=== PATIENT | male | born 1990 | race African-American/Black ===

== ENCOUNTER 2016-07-07 06:40 | Emergency (ER) | payer OTHER ==
--- NOTE | 2016-07-07 07:48 | ED NECK/BACK PAIN COMPLAINT ---
History of Present Illness General Chief Complaint: Neck/Upper Back Pain/Injury Stated Complaint: BACK PAIN Source: patient, old records Exam Limitations: no limitations Allergies Coded Allergies: No Known Allergies (07/07/16) Reconcile Medications Cyclobenzaprine HCl 5 MG TABLET 1 TAB PO TIDPRN pain Ibuprofen 800 MG TABLET 1 TAB PO TID PRN pain Oxycodone HCl/Acetaminophen (Percocet 5-325 MG Tablet) 5 MG-325 MG TABLET 1 TAB PO BID PRN pain Triage Note: PER PT BACK PAin since 0000 no known injury no trauma no urine co Triage Nurses Notes Reviewed? yes Onset: Abrupt Duration: hour(s): (8), constant, waxing and waning Timing: recent history Quality/Severity: moderate, severe (aching) Location: paraspinous muscles Radiation: abdomen Method of Injury: unknown Loss of Consciousness: no loss of consciousness Modifying Factors: movement Associated Symptoms: nausea HPI: 26-year-old male with no medical history presents emergency room complaining of bilateral lower back pain is radiating to the right lower quadrant since 12:00 this morning. He denies any known injury or trauma or fall. He reports to nausea secondary to the pain. It is worse with change in position and movement better at rest. He took Tylenol around 1:00 this morning. No fever no chills no urinary symptoms. No change in his bowel movements or dysuria urgency frequency or hematuria. Patient reports that he's had several episodes of pain before that he's got cc his doctor however no known cause is been identified. No chest pain no shortness of breath. No recent trauma injury or fall. (DANIEL FORBES) Vital Signs & Intake/Output Vital Signs & Intake/Output Vital Signs Date Time Temp Pulse Resp B/P Pulse O2 O2 Flow FiO2 Ox Delivery Rate 07/07 1042 98.3 76 18 126/84 98 Room Air 07/07 0813 98.4 07/07 0645 101 28 129/78 99 Past History Travel History Traveled to [place] past 21 day No Medical History Any Pertinent Medical History? none Neurological: NONE EENT: NONE Cardiovascular: NONE Respiratory: NONE Gastrointestinal: NONE Hepatic: NONE Renal: NONE Musculoskeletal: NONE Psychiatric: NONE Endocrine: NONE Surgical History Surgical History: none Psychosocial History What is your primary language Marshallese Tobacco Use: Current Daily Use Daily Tobacco Use Amount/Type: => 5 Cigarettes daily Family History Hx Contributory? No (DANIEL FORBES) Review of Systems Review of Systems Constitutional: Reports: see HPI. All Other Systems: Reviewed and Negative Comments Review of systems: See HPI, All other systems negative. Constitutional, no chills no fever, no malaise HEENT: No visual changes no sore throat no congestion, no ear pain Cardiovascular: No chest pain , no palpitation Skin, no rashes, no change in skin Respiratory: No dyspnea no cough no sputum no hemoptysis GI: nausea no vomiting, no diarrhea, no bloating/constipation : No dysuria No hematuria, Muscle skeletal: No joint pain, no joint swelling, back pain, no neck pain, Neurologic: no headache Psych: No stress Heme/endocrine: No bruising no bleeding Immunology: No lymphadenopathy (DANIEL FORBES) Physical Exam Physical Exam General Appearance: well developed/nourished, alert, awake Neck: normal inspection, supple, full range of motion Comments: Well-developed well-nourished person in no acute distress HEENT: Normal EENT exam; PERRL, EOMI. HEAD is atraumatic. moist mucous membranes. Neck: Supple, no lymphadenopathy, normal range of motion Back: Bilateral para spinal muscle tenderness to palpation over the lower back, no CVA tenderness. Full range of motion Cardiovascular: Regular rate and rhythms no murmurs rubs or gallops, normal JVP Respiratory: Chest nontender.There were no bony deformities, no asymmetry. No respiratory distress. Patient speaking in full complete sentences. Breath sounds clear to auscultation bilaterally: NO W/R/R Abdomen: Soft, right lower quadrant is tender to palpation, negative Rovsing's negative joint cleaning machine operator sign nondistended, no appreciable organomegaly. Normal bowel sounds. No rebound/guarding, No appreciable enlargement of the abdominal aorta, No ascites. Extremity: No edema, full range of motion of extremities, negative straight leg raise bilaterally normal and equal pulses bilaterally, 5 out of 5 strength noted to bilateral upper and lower extremities Neuro: Alert oriented x3, motor sensory normal. There were no obvious focal neurologic abnormalities. Skin: No appreciable rash on exposed skin, skin is warm and dry. No diaphoresis Psych: Mood and affect is normal, memory and judgment is normal. (DANIEL FORBES) Progress Differential Diagnosis: cauda equina syn, herniated disc, myofascial strain, pyelo/UTI, sciatica, spinal cord inj, T/L spine injury, ureterolithiasis, appendicitis cholelithiasis kidney stone, epidural abscess Diagnostic Imaging: Viewed by Me: CT Scan. Discussed w/RAD: CT Scan. Radiology Impression: PATIENT: TRISHA JERRY PRESENT AGE: 26 PATIENT ACCOUNT NO: [id number] : 91 LOCATION: [facility] ORDERING PHYSICIAN: DANIEL LOPEZ SERVICE DATE: 07/07/16 EXAM TYPE: CAT - CT ABD & PELVIS W IV CONTRAST EXAMINATION: CT ABDOMEN AND PELVIS WITH CONTRAST CLINICAL INFORMATION: 26-year-old male with right lower quadrant abdominal pain radiating into the back. Nausea. Evaluate for kidney stone or appendicitis. COMPARISON: None TECHNIQUE: Multidetector volumetric imaging was performed of the abdomen and pelvis after the IV administration of 95 mL of Optiray 320 intravenous contrast. Sagittal and coronal reformatted images were obtained on the technologist's workstation. DLP: 468 mGy-cm FINDINGS: LUNG BASES: Unremarkable. LIVER, GALLBLADDER, AND BILIARY TREE: Unremarkable. PANCREAS: Unremarkable. SPLEEN: No focal splenic lesion. Spleen is 13 cm craniocaudal dimension. ADRENAL GLANDS: Unremarkable. KIDNEYS AND URETERS: Kidneys are normal in size and enhance symmetrically. No focal renal or parenchymal lesion, hydronephrosis or nephrolithiasis. The ureters are unremarkable. BLADDER: Unremarkable. GASTROINTESTINAL TRACT: Stomach, small bowel, colon and appendix are unremarkable. No appendicitis. No abdominal ascites or pneumoperitoneum. ABDOMINAL WALL: No acute findings. Mild diastases of the rectus abdominis muscles at the level of the umbilicus with focal protrusion of fat and small bowel between the rectus muscles at the umbilicus. LYMPH NODES: Normal. VASCULAR : Unremarkable. PELVIC VISCERA: Unremarkable. OSSEOUS STRUCTURES: Incidentally noted is stage 2 avascular necrosis of the right femoral head. IMPRESSION: 1. No acute imaging findings in the abdomen or pelvis. 2. No evidence of urolithiasis or urinary tract obstruction. 3. Appendix is normal. 4. 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 Question whether the patient has any known risk factors for development of AVN. 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 < Electronically signed in Other Vendor System> SIGNED BY: DENI OJEDA MD 07/07/1633 (DANIEL FORBES) Plan of Care: Orders Procedure Date/time Status Saline Lock 07/08 799 Active URINALYSIS 07/08 799 Complete COMPREHENSIVE METABOLIC PANEL 07/08 799 Complete CBC WITHOUT DIFFERENTIAL 07/08 799 Complete Laboratory Tests 07/07/16 0805: Anion Gap 17 H, Estimated GFR > 60, BUN/Creatinine Ratio 10.9, Glucose 96, Calcium 10.2, Total Bilirubin 1.0, AST 51, ALT 89 H, Alkaline Phosphatase 99, Total Protein 8.3 H, Albumin 5.0, Globulin 3.3, Albumin/Globulin Ratio 1.5, CBC w Diff MAN DIFF ORDERED, RBC 6.07, MCV 71.4 L, MCH 23.7 L, RDW 17.8 H, MPV 8.1, Gran % 83.5 H, Lymphocytes % 11.0 L, Monocytes % 5.0, Eosinophils % 0.2, Basophils % 0.3, Absolute Granulocytes 10.3 H, Segmented Neutrophils 75, Absolute Lymphocytes 1.4, Lymphocytes 14 L, Monocytes 10 H, Absolute Monocytes 0.6, Eosinophils 1, Absolute Eosinophils 0, Absolute Basophils 0, Nucleated RBCs 2 H, Platelet Estimate VERIFIED BY SMEAR, Normocytic RBCs VERIFIED, Normochromic RBCs VERIFIED, PUBS MCHC 33.2, Urine Color YEL, Urine Clarity CLEAR , Urine pH 6.0, Ur Specific [place] 1.015, Urine Protein NEG, Urine Ketones 15 H, Urine Nitrite NEG, Urine Bilirubin NEG, Urine Urobilinogen 0.2, Ur Leukocyte Esterase NEG, Ur Microscopic EXAM NOT REQUIRED, Urine Hemoglobin NEG, Urine Glucose NEG Labs ordered old records reviewed patient medicated Toradol 30 mg IV IV fluids Zofran 4 IV case discussed with Dr. Kogn agrees with plan Patient reports symptoms have improved with Toradol continue to monitor On repeat evaluation patient reports pain is returning morphine 2 mg IV ordered. Discussed with him at length all his lab results pending CAT scan 07/07/2016 10:21:57 AM I discussed with the patient and his family his CT results and incidental findings regarding his possible avascular necrosis. Patient denies history of right hip pain in the past he denies any difficulty with ambulation. Discussed the need for close follow-up with orthopedist information was provided for the same, the patient's pain in his lower back and abdomen have improved. The pain is reproducible with palpation and change in position I considered other etiologies including abscess meningitis. The patient states that this does not feel similar to be meningitis he had as a child there is no headache. No recent tick or insect bite. He feels comfortable with this plan I answered all her questions I discussed with the patient at length all of their results. I had an extensive conversation regarding need for close follow up with their primary care physician this week as well as return precautions. I answered all of their questions, they feel comfortable with the plan and follow-up care. I discussed the medications that they will receive with the patient. I gave them signs and symptoms that could indicate an adverse reaction. I have advised them to limit their activities until they can see how they respond to the medication. (DANIEL FORBES) Departure Departure Time of Disposition: 1020 Disposition: HOME OR SELF CARE Condition: Stable Clinical Impression Primary Impression: Low back strain Secondary Impressions: Avascular necrosis, Leukocytosis Referrals: EDWIN SPRAGUE MD PATIENT HAS NO PRIMARY CARE DR (PCP/Family) Additional Instructions: follow up with orthopedist dr sprague regarding the incidental findings as discussed. rest, interchange ice and heat. ibuprofen 800mg every 8 hours, percocet for breakthrough pain- use caution as this will make you drowsy. no driving or drinking alcohol while taking. flexeril as discussed. these were sent to [facility] Departure Forms: Customer Survey General Discharge Information Prescriptions: Current Visit Scripts Ibuprofen 1 TAB PO TID PRN pain #30 TAB Oxycodone HCl/Acetaminophen (Percocet 5-325 MG Tablet) 1 TAB PO BID PRN pain #10 TAB Cyclobenzaprine HCl 1 TAB PO TIDPRN #30 TAB (DANIEL FORBES) PA/LANGUAGE PATHOLOGIST Co-Sign Statement Statement: ED Attending supervision documentation- [] I saw and evaluated the patient. I have also reviewed all the pertinent lab results and diagnostic results. I agree with the findings and the plan of care as documented in the PA's/LANGUAGE PATHOLOGIST's documentation. [X] I have reviewed the ED Record and agree with the PA's/LANGUAGE PATHOLOGIST's documentation. [] Additions or exceptions (if any) to the PAs/LANGUAGE PATHOLOGIST's note and plan are summarized below: [] (FRANK PATEL,MARY KAY Belcher)
[2016-07-07 08:21] LABS: ABSOLUTE BASOPHIL COUNT 0 /CUMM (0.0-0.2); ABSOLUTE EOSINOPHIL COUNT 0 /CUMM (0.0-0.7); ABSOLUTE GRANULOCYTE CT 10.3 /CUMM (1.4-6.5); ABSOLUTE LYMPH COUNT 1.4 /CUMM (1.2-3.4); ABSOLUTE MONOCYTE COUNT 0.6 /CUMM (0.10-0.60); BASOPHIL % 0.3 % (0.0-2.0); EOSINOPHIL % 0.2 % (0-5); GRANULOCYTE % 83.5 % (42.2-75.2); HEMATOCRIT 43.3 % (42-52); MEAN CORPUSCULAR HGB 23.7 PG (27.0-31.0); MEAN CORPUSCULAR HGB CONC 33.2 G/DL (33.0-37.0); MEAN CORPUSCULAR VOLUME 71.4 FL (80.0-94.0); MEAN PLATELET VOLUME 8.1 FL (7.4-10.4); PLATELET COUNT 276 /CUMM (130-400); RBC DISTRIBUTION WIDTH 17.8 % (11.5-14.5); RED BLOOD CELL CT 6.07 /CUMM (4.70-6.10); WHITE BLOOD CELL COUNT 12.3 /CUMM (4.8-10.8)
--- NOTE | 2016-07-07 09:31 | CT SCAN REPORT ---
EXAMINATION: CT ABDOMEN AND PELVIS WITH CONTRAST CLINICAL INFORMATION: 26-year-old male with right lower quadrant abdominal pain radiating into the back. Nausea. Evaluate for kidney stone or appendicitis. COMPARISON: None TECHNIQUE: Multidetector volumetric imaging was performed of the abdomen and pelvis after the IV administration of 95 mL of Optiray 320 intravenous contrast. Sagittal and coronal reformatted images were obtained on the technologist's workstation. DLP: 468 mGy-cm FINDINGS: LUNG BASES: Unremarkable. LIVER, GALLBLADDER, AND BILIARY TREE: Unremarkable. PANCREAS: Unremarkable. SPLEEN: No focal splenic lesion. Spleen is 13 cm craniocaudal dimension. ADRENAL GLANDS: Unremarkable. KIDNEYS AND URETERS: Kidneys are normal in size and enhance symmetrically. No focal renal or parenchymal lesion, hydronephrosis or nephrolithiasis. The ureters are unremarkable. BLADDER: Unremarkable. GASTROINTESTINAL TRACT: Stomach, small bowel, colon and appendix are unremarkable. No appendicitis. No abdominal ascites or pneumoperitoneum. ABDOMINAL WALL: No acute findings. Mild diastases of the rectus abdominis muscles at the level of the umbilicus with focal protrusion of fat and small bowel between the rectus muscles at the umbilicus. LYMPH NODES: Normal. VASCULAR: Unremarkable. PELVIC VISCERA: Unremarkable. OSSEOUS STRUCTURES: Incidentally noted is stage 2 avascular necrosis of the right femoral head. IMPRESSION: 1. No acute imaging findings in the abdomen or pelvis. 2. No evidence of urolithiasis or urinary tract obstruction. 3. Appendix is normal. 4. 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 Question whether the patient has any known risk factors for development of AVN.
[2016-07-07] MEDS ORDERED: CYCLOBENZAPRINE5 M2 PO (10:24)
[2016-07-07] MEDS ORDERED: IBUPROFEN800 M1 PO (10:24)
[2016-07-07] MEDS ORDERED: PERCOCET 5-3251 EACH PO (10:24)
[2016-07-07 10:42] VITALS: BP 126/84
== END 2016-07-07 10:42 ==
LOC: ERH 06:40
PROVIDERS: Physician Assistant Medical
DX: S39.012A Strain of muscle, fascia and tendon of lower back, initial encounter (principal); M87.351 Other secondary osteonecrosis, right femur; D72.829 Elevated white blood cell count, unspecified
CPT/HCPCS: 74177; 81003; 96361; 96374; 96375; J1885; J2405